=== PATIENT | female | born 1985 | race Caucasian/White ===

== ENCOUNTER 2021-03-01 15:19 | Emergency (ER) | payer BC, SELFPAY ==
[2021-03-01 15:19] VITALS: BP 110/82; PULSE 115; RESP 18; TEMP 36.1; O2SAT 100; BMI 25.5
--- NOTE | 2021-03-01 15:45 | EKG12_ITS ---
Test Reason : CP Blood Pressure : / mmHG Vent. Rate : 094 BPM Atrial Rate : 094 BPM P-R Int : 128 ms QRS Dur : 072 ms QT Int : 362 ms P-R-T Axes : 040 063 034 degrees QTc Int : 452 ms Normal sinus rhythm with sinus arrhythmia Normal ECG Confirmed by MARCELLA RODRIGUEZ, RUTHIE ([id number]), script editor MANDY KEENE ([id number]) on 03/04/2021 9:55:23 AM Referred By: FLOR Confirmed By:RUTHIE NARANJO MD
--- NOTE | 2021-03-01 16:20 | EDS_ITS ---
HPI History of Present Illness Chief Complaint: General Illness Informant: patient Onset/Context/Timing Onset: Today Narrative Narrative: Patient reports after taking her daughter to school this morning she developed lightheadedness and dizziness. She did have an episode of vomiting. She has chest heaviness and mild loose stool. No fever has been noted. [facility] Medical History no medical history no medical history Home Medications norethindrone ac-eth estradiol [June (21)] 1 tab PO DAILY 03/01/21 [History Last Taken Unknown] Allergy/AdvReac Type Severity Reaction Status Date / Time adhesive Allergy Rash Verified 03/01/21 15:21 latex Allergy Rash Verified 03/01/21 15:21 morphine Allergy Other Verified 03/01/21 15:21 Penicillins Allergy Anaphylaxis Verified 03/01/21 15:21 Social History Smoking Status: Never smoker ROS ROS ED Constitutional Constitutional ED: Denies chills or fever(s) Eyes Eyes: Denies change in vision ENT ENT ED: Denies sore throat Cardiovascular Cardiovascular: Reports chest pain Respiratory/Chest Respiratory/Chest: Reports dyspnea; Denies cough Gastrointestinal Gastrointestinal: Reports nausea and vomiting; Denies abdominal pain or diarrhea Genitourinary Genitourinary ED: Denies dysuria Musculoskeletal Musculoskeletal: Reports myalgias; Denies back pain Integumentary Denies rash Neurologic Neurologic: Reports other Details: Lightheadedness ; Denies headache(s) or weakness Allergic/Immunologic Allergic/Immunologic ED: Denies urticaria EXAM Physical Exam Const Vital Signs: 03/01/21 15:19 03/01/21 16:58 03/01/21 17:00 Temperature 97 F L Temperature Source Temporal Pulse Rate 115 H 72 Respiratory Rate 18 17 Respiratory Effort Normal Non-Labored Respiratory Pattern Normal Blood Pressure 110/82 H 121/78 H Blood Pressure Mean 91 92 Pulse Ox 100 Oxygen Delivery Method Room Air Positive well nourished and well developed General Appearance ED: well developed HEENT Reports moist mucous membranes Eyes PERRL and EOMs intact bilaterally Neck supple Chest Wall inspection of chest normal and palpation of chest normal Resp normal respiratory effort and clear to auscultation bilaterally Cardio regular rate and regular rhythm GI non-tender Auscultation: hypoactive bowel sounds Palpation: soft Extremity normal to inspection Neuro oriented x3 and no sensory deficits noted Sensorium / Orientation: alert Motor Exam: strength 5/5 throughout Skin no rashes or lesions noted MDM MDM MDM Narrative Medical decision making narrative: Lab work, chest x-ray, EKG ordered. Patient given 500 cc IV fluid bolus along with a dose of Zofran. Lab Data Attestation: I reviewed the patient's lab results. Labs: Laboratory Results - last 24 hr 03/01/21 03/01/21 03/01/21 16:35 16:35 16:35 WBC 9.0 RBC 4.70 Hgb 14.0 Hct 43.4 MCV 92.3 MCH 29.8 MCHC 32.3 RDW Std Deviation 43.8 RDW Coeff of Jose Alfredo 13.0 Plt Count 421 MPV 9.7 Immature Gran % (Auto) 0.700 Neut % (Auto) 69.2 Lymph % (Auto) 23.6 [place] % (Auto) 5.4 Eos % (Auto) 0.8 Baso % (Auto) 0.3 Absolute Neuts (auto) 6.2 Absolute Lymphs (auto) 2.11 Nucleated RBC % 0 D-Dimer Quant (PE/DVT) 0.87 H* Sodium 138 Potassium 3.9 Chloride 104 Carbon Dioxide 24.0 Anion Gap 10 BUN 13 Creatinine 0.96 Estim Creat Clear Calc 81.72 Est GFR (MDRD) Af Amer 84 Est GFR (MDRD) Non-Af 69 BUN/Creatinine Ratio 13.5 Glucose 95 Calcium 9.4 Troponin I High Sens 3 Serum , Qual 03/01/21 16:35 WBC RBC Hgb Hct MCV MCH MCHC RDW Std Deviation RDW Coeff of Jose Alfredo Plt Count MPV Immature Gran % (Auto) Neut % (Auto) Lymph % (Auto) [place] % (Auto) Eos % (Auto) Baso % (Auto) Absolute Neuts (auto) Absolute Lymphs (auto) Nucleated RBC % D-Dimer Quant (PE/DVT) Sodium Potassium Chloride Carbon Dioxide Anion Gap BUN Creatinine Estim Creat Clear Calc Est GFR (MDRD) Af Amer Est GFR (MDRD) Non-Af BUN/Creatinine Ratio Glucose Calcium Troponin I High Sens Serum , Qual NEGATIVE Radiography Chest X-Ray - ED: 1 View, Read by ED Physician, Normal, Heart, Lungs and Mediastinum Diagnostic Testing: Clinical Impression(s) from Imaging Studies Chest X-Ray 03/01/21 16:35 IMPRESSION: Normal x-ray examination of the chest. Electronically Signed: Good Martinez MD at 16:47 EST Tel , Service support , Chest CTA 03/01/21 17:38 IMPRESSION: No demonstrated pulmonary embolism or arterial dissection. Electronically Signed: Edouard Fenton MD at 18:17 EST , Service support , EKG Initial EKG: Attestation: I personally reviewed and interpreted this EKG as follows: Interpretation: Sinus Rhythm (Sinus at 94 with no acute ischemia.) Treatment and Re-Evaluation Comments:: Patient's lab work reviewed and largely unremarkable. D-dimer is elevated. Chest x-ray reveals no infiltrate. CTA obtained and unremarkable. On repeat evaluation patient is walking back to the bathroom. She does report some slight improvement in her symptoms. She is reassured with our findings here. I will send a urinalysis to ensure no sign of infection. If this is positive or she requires any treatment I will call her. Return instructions provided. Discharge Plan Triage Chief Complaint: General Illness ED Provider: Tatianna Kim Dx/Rx/DC Orders Clinical Impression: Dizziness Instructions: ED Dizziness, Uncertain Cause Prescriptions: No Action norethindrone ac-eth estradiol [ (21)] 1.5-30 mg-mcg tablet 1 tab PO DAILY RF: 0 Primary Care Provider: Care Physician,No Primary Referrals: Ana Patel MD [STAFF PHYSICIAN] - 1-2 Weeks Care Physician,No Primary [Primary Care Provider] - Disposition Disposition: Home, Self Care
--- NOTE | 2021-03-01 16:35 | RAD_ITS ---
STUDY: X-RAY CHEST REASON FOR EXAM: Female, 35 years old. cp TECHNIQUE: Single AP portable view of the chest. COMPARISON: None. FINDINGS: The lungs are clear and expanded. There is no demonstrated pleural abnormality. Normal size heart. Normal mediastinum and telly. Normal visualized pulmonary arteries. Normal visualized aortic arch and descending thoracic aorta. Normal visualized thoracic spine. Normal visualized ribs, clavicles, and shoulders. There is no demonstrated abnormality of the visualized soft tissue structures of the upper abdomen. RAD/Chest 1 View (Portable) IMPRESSION: Normal x-ray examination of the chest. Electronically Signed: Good Martinez MD at 16:47 EST Tel , Service support ,
[2021-03-01] MEDS: Ondansetron 4 MG/2 ML Vial IV (16:43)
[2021-03-01 16:58] VITALS: BP 121/78; PULSE 72; RESP 17
[2021-03-01 16:59] LABS: Internal QC Validated? YES +Cl - CLEAR BKGD; Pregnancy, Serum, hCG Quali. NEGATIVE Negative
[2021-03-01 17:01] LABS: Absolute Lymphocyte Count 2.11 X10^3/uL (0.83-4.51); Absolute Neutrophil Count 6.2 X10^3/uL (2.0-7.7); Basophil# 0.03 X10^3/uL; Basophil% 0.3 % (0-1); Eosinophil# 0.07 X10^3/uL; Eosinophils% 0.8 % (0-5); Hematocrit 43.4 % (37-47); Lymphocyte # 2.11 X10^3/ul (0.83-4.51); Lymphocyte % 23.6 % (19-41); Mean Corp Hgb Conc 32.3 g/dL (32-36); Mean Corpuscular Hgb 29.8 pg (27.0-32.0); Mean Corpuscular Volume 92.3 fL (81-99); Mean Platelet Vol. 9.7 fl (6.2-12.0); Monocyte# 0.48 X10^3/uL; Monocyte% 5.4 % (0-10); NRBC Flagged by Analyzer 0 % (0-5); Neutrophil % 69.2 % (47-70); Platelet Count 421 K/mm3 (150-450); RBC Distribution Width SD 43.8 fl (35.1-43.9)
[2021-03-01 17:06] LABS: Anion Gap 10 (5-15); BUN 13 mg/dL (7-18); BUN/Creat Ratio 13.5 RATIO (10-20); Calcium,Total 9.4 mg/dL (8.5-10.1); Chloride 104 mmol/L (98-107); Creatinine, Serum 0.96 mg/dL (0.55-1.02); EST Glomerular Filtration Rate 69 mL/min (>60); Est Glom Filt Rate - Afr Amer 84 mL/min (>60); Estimated Creatinine Clearance 81.72 ml/min; Glucose 95 mg/dL (74-106); Potassium 3.9 mmol/L (3.5-5.1); Sodium Level 138 mmol/L (136-145); Troponin-I HS 3 pg/mL (3.0-54.0)
[2021-03-01 17:22] LABS: D-Dimer Quantitative (DVT/PE) 0.87 FEU/ug/m (0.27-0.49)
--- NOTE | 2021-03-01 17:38 | CT_ITS ---
EXAM: CT ANGIOGRAPHY CHEST WITHOUT AND WITH INTRAVENOUS CONTRAST CLINICAL INDICATION: CP, elevated d-dimer TECHNIQUE: Helically acquired angiography images were obtained of the chest without and with intravenous contrast. This CT exam was performed using one or more of the following dose reduction techniques: automated exposure control, adjustment of the mA and/or kV according to patient size, and/or use of iterative reconstruction technique. This report was created using [employer] report generation technology. MIP reconstructed images were created and reviewed. CONTRAST: IV 100mL Isovue-370 COMPARISON: None. FINDINGS: PULMONARY ARTERIES: No demonstrated pulmonary embolism or arterial dissection. AORTA: Unremarkable. Normal in caliber. No evidence of dissection. GREAT VESSELS OF AORTIC ARCH: Unremarkable. Normal in caliber. No evidence of dissection. LUNGS AND PLEURAL SPACES: Unremarkable. No mass. No consolidation or edema. No pleural effusion or thickening. No pneumothorax. HEART: Unremarkable. Heart size is normal. No pericardial effusion. No signs of right heart strain, ratio of right ventricle to left ventricle measures less than 1. MEDIASTINUM: Unremarkable. No mediastinal or hilar adenopathy. Esophagus is unremarkable. No hiatal hernia. THYROID: Unremarkable. No thyroid lesions. BONES/JOINTS: Unremarkable. No suspicious lytic or blastic abnormality. CT/CTA Chest W/WO Contrast IMPRESSION: No demonstrated pulmonary embolism or arterial dissection. Electronically Signed: Edouard Fenton MD at 18:17 EST , Service support ,
[2021-03-01 19:20] VITALS: BP 138/74; PULSE 62; RESP 17; O2SAT 97
[2021-03-01 19:42] LABS: Bacteria 0 SEEN /hpf (None Seen); Mucous, Urine 0 SEEN /hpf (<or=2+); Red Blood Cells-Urine 0 SEEN /hpf (0-5); White Blood Cells 0 SEEN /hpf (0-5)
[2021-03-01 19:44] LABS: Color, Urine Yellow (Yellow); Glucose, Dipstick Normal (Normal); Ketone-Dipstick Negative (Negative); Leukocyte Esterase-Dipstick 100 /ul (Negative); Nitrite-Dipstick Negative (Negative); Occult Blood-Urine 25 /ul (Negative); Protein-Dipstick Negative (Negative); Urine Bilirubin Dipstick Negative (Negative); Urine Clarity Clear (Clear); Urine Urobilinogen Normal (Normal); Urine pH 6.5 (5.0 - 8.0)
[2021-03-01 20:06] LABS: Squamous Epithelial Cells - UA 0-5 SEEN /hpf (5-10)
== END 2021-03-01 19:20 | disposition home or self-care (01) ==
PROVIDERS: Emergency Provider Emergency Medicine; Visit Provider Emergency Medicine
DX: R42 Dizziness and giddiness (principal); R07.89 Other chest pain; R11.10 Vomiting, unspecified
CPT/HCPCS: 71045; 71275; 80048; 81001; 84484; 84703; 85025; 85379; 87426; 93005; 96361; 96374; 99284; J7040; Q9967; J2405

== ENCOUNTER 2023-09-11 06:05 | Emergency (ER) | payer BC, SELFPAY ==
[2023-09-11 06:06] VITALS: BP 111/76; PULSE 104; RESP 18; TEMP 36.6; O2SAT 100
--- NOTE | 2023-09-11 06:19 | EKG12_ITS ---
Test Reason : BACK PAIN Blood Pressure : / mmHG Vent. Rate : 090 BPM Atrial Rate : 090 BPM P-R Int : 158 ms QRS Dur : 078 ms QT Int : 370 ms P-R-T Axes : 026 060 051 degrees QTc Int : 452 ms Normal sinus rhythm Normal ECG Confirmed by MARILEE RODRIGUEZ, JERRY ([id number]), photo editor KALIA CAMPBELL ([id number]) on 09/13/2023 10:30:54 A M Referred By: Confirmed By:LUZ HUNT MD
--- NOTE | 2023-09-11 06:32 | EX.ED.DYSGE1 ---
HPI History of Present Illness Chief Complaint: Back Informant: patient and spouse/S.O. Narrative Narrative: Patient is a 38-year-old female with no significant past medical history. She states for the past 2 weeks she has had a persistent cough which has not improved with steroids, cough pill or round of antibiotics. She states she also had an x-ray during this time that did not reveal any obvious pneumonia. Patient denies any recent trauma or excessive activity and states she went to bed feeling relatively normal. She states she woke at 5 in the morning secondary to pain in the left upper back. She states that the pain is worse with motion. She denies any recent travel surgery or history of DVT/PE. However secondary to the pain and the fact that she does not have any obvious reason for why it should hurt she presents for evaluation [facility] Home Medications ?Medication ?Instructions ?Recorded ?Last Taken ?Type ferrous sulfate 325 mg (65 mg 325 mg PO DAILY 09/11/23 Unknown History iron) tablet (Feosol) methocarbamol 500 mg tablet 1,000 mg (2 x 500 mg) PO 4X/DAY 09/11/23 Unknown Rx PRN Muscle pain/spasm #56 tabs multivitamin (Daily Multi-Vitamin 1 tab PO DAILY 09/11/23 Unknown History tablet) Allergy/AdvReac Type Severity Reaction Status Date / Time adhesive Allergy Rash Verified 09/11/23 06:12 latex Allergy Rash Verified 09/11/23 06:12 morphine Allergy Other Verified 09/11/23 06:12 Penicillins Allergy Anaphylaxis Verified 09/11/23 06:12 Social History Smoking Status: Never smoker [facility] ED Constitutional Constitutional ED: Denies chills or fever(s) Eyes Eyes: Denies blurry vision or change in vision ENT ENT ED: Denies rhinorrhea or sore throat Cardiovascular Cardiovascular: Denies chest pain, palpitations or racing heartbeat Respiratory/Chest Respiratory/Chest: Reports cough; Denies dyspnea Gastrointestinal Gastrointestinal: Denies abdominal pain, diarrhea, nausea or vomiting Genitourinary Genitourinary ED: Denies dysuria Musculoskeletal Musculoskeletal: Reports back pain Integumentary Denies rash Neurologic Neurologic: Denies headache(s) Hematologic/Lymphatic Hematologic/Lymphatic: Denies easy bleeding or easy bruising EXAM Physical Exam Const Vital Signs: 09/11/23 06:06 Temperature 97.8 F Temperature Source Oral Pulse Rate 104 H Respiratory Rate 18 Blood Pressure 111/76 Blood Pressure Mean 87 Pulse Ox 100 Oxygen Delivery Method Room Air Positive well nourished and well developed General Appearance ED: well developed; Negative for pallor HEENT HEENT Narrative: No tongue or lip swelling no oral lesions no airway edema or compromise Eyes PERRL and EOMs intact bilaterally General Eye ED: Negative for pale conjunctiva or scleral icterus Neck supple Neck Narrative: No nuchal rigidity or meningeal signs noted Chest Wall palpation of chest normal Resp normal respiratory effort and clear to auscultation bilaterally Resp Narrative: Breath sounds are slight diminished throughout secondary to pain but overall clear to auscultation without nasal flaring retractions tachypnea or accessory muscle use Cardio regular rate and regular rhythm Rate: other Other Details: Heart is regular rate and rhythm without murmurs rubs or gallops Radial and carotid pulses are equal and symmetric GI normal to inspection, nondistended, normoactive bowel sounds, non-tender, non-distended and no masses GI Narrative: No voluntary guarding or rigidity or pulsatile mass Auscultation: normoactive bowel sounds Palpation: soft Back/Spine Back/Spine Narrative: No bony deformity or step-off of the thoracic or lumbar spine no midline tenderness to palpation. There is reproducible left upper thoracic pain with palpation near the shoulder blade. This pain worsens with motion as well No overlying soft tissue changes to suggest trauma or infection Extremity normal to inspection Extremity Narrative: No asymmetric edema no pitting edema negative Homans' sign bilaterally Neuro oriented x3, CN's II-XII intact bilaterally and no sensory deficits noted Sensorium / Orientation: alert Motor Exam: strength 5/5 throughout Psych mental status grossly normal Skin no rashes or lesions noted and no wounds General Skin Exam: Negative for jaundice or pallor MDM MDM MDM Narrative Medical decision making narrative: Patient presented to the ER with stable vitals and reported left upper back pain that is worse with motion and deep inspiration. She has had a persistent cough for the past few weeks and denied any recent trauma or excessive activity. The fact that the pain is reproducible with palpation and worse with motion indicates this is most likely musculoskeletal secondary to her persistent cough. However as there is concern this could be acute coronary syndrome versus pneumothorax versus pneumonia versus pulmonary embolus versus dissection I did elect to perform basic laboratory studies as well as EKG and chest x-ray. Chest x-ray revealed no lung pathology such as widening the mediastinum to suggest dissection nor did show pneumonia or pneumothorax. EKG was normal sinus rhythm without ischemic changes and troponin was normal as well going against acute coronary syndrome. Patient's D-dimer slightly elevated at 0.72 and even though she is low risk for DVT/PE or dissection a CTA will be obtained secondary to her left upper back pain and elevated D-dimer. As this result will be pending patient will be signed out to the day physician Dr. Solis. I do feel that symptoms are most likely musculoskeletal in nature and as long as CTA does not reveal any type of acute vascular lung pathology patient should be safe for discharge home. History & Record Review Discussion w/independent historian: Patient and Significant other Lab Data Attestation: I reviewed the patient's lab results. Labs: Laboratory Results - last 24 hr 09/11/23 06:33 WBC 7.4 RBC 4.23 Hgb 11.1 L Hct 37.1 MCV 87.7 MCH 26.2 L MCHC 29.9 L RDW Std Deviation 49.8 H RDW Coeff of Jose Alfredo 15.6 H Plt Count 388 MPV 9.8 Immature Gran % (Auto) 0.400 Neut % (Auto) 55.8 Lymph % (Auto) 31.9 [place] % (Auto) 7.6 Eos % (Auto) 3.8 Baso % (Auto) 0.5 Absolute Neuts (auto) 4.1 Absolute Lymphs (auto) 2.36 Nucleated RBC % 0 D-Dimer Quant (PE/DVT) 0.72 H* Radiography Diagnostic Testin view chest x-ray as interpreted by the emergency medicine physician reveals no acute infiltrate pneumothorax pleural effusion or widening the mediastinum Discharge Plan Triage Chief Complaint: Back ED Provider: Ilir Arizmendi Dx/Rx/DC Orders Clinical Impression: Acute thoracic myofascial strain, Cough Instructions: ED Back Spasm, No Trauma, ED Back Sprain/Strain Prescriptions: New methocarbamol 500 mg tablet 1,000 mg PO 4X/DAY PRN (Reason: Muscle pain/spasm) Qty: 56 0RF No Action multivitamin [Daily Multi-Vitamin] Tablet 1 tab PO DAILY ferrous sulfate [Feosol] 325 mg (65 mg iron) tablet 325 mg PO DAILY Primary Care Provider: Jarocho Brown Referrals: Jarocho Brown MD [[facility]] - Print Language: Syrian
[2023-09-11] MEDS: Orphenadrine 60 MG/2 ML Ampul IV (06:34)
[2023-09-11] MEDS: Ketorolac 30 MG/ML Syringe IV (06:34)
--- NOTE | 2023-09-11 06:40 | RAD_ITS ---
EXAM: XR CHEST, 2 VIEWS CLINICAL INDICATION: COUGH TECHNIQUE: Frontal and lateral views of the chest. COMPARISON: Previous chest radiograph of 03/01/2021. CTA chest of this date. FINDINGS: LUNGS AND PLEURAL SPACES: Unremarkable. No consolidation or edema. No pneumothorax. No effusion. No peribronchial cuffing. The lungs are not hyperinflated. HEART: Unremarkable. Cardiac silhouette not enlarged. Normal pulmonary vasculature. MEDIASTINUM: Central airways and mediastinal contour are unremarkable. BONES/JOINTS: Unremarkable. No acute fracture. SOFT TISSUES: Unremarkable. RAD/Chest PA and Lateral IMPRESSION: No significant interval change. No radiographic evidence of acute cardiopulmonary disease. Electronically Signed: Thomas Luke MD at 7:54 EDT ,
[2023-09-11 06:42] LABS: Absolute Lymphocyte Count 2.36 X10^3/uL (0.83-4.51); Absolute Neutrophil Count 4.1 X10^3/uL (2.0-7.7); Basophil# 0.04 X10^3/uL; Basophil% 0.5 % (0-1); Eosinophil# 0.28 X10^3/uL; Eosinophils% 3.8 % (0-5); Hematocrit 37.1 % (37-47); Hemoglobin 11.1 g/dL (12.0-15.0); Lymphocyte # 2.36 X10^3/ul (0.83-4.51); Lymphocyte % 31.9 % (19-41); Mean Corp Hgb Conc 29.9 g/dL (32-36); Mean Corpuscular Hgb 26.2 pg (27.0-32.0); Mean Corpuscular Volume 87.7 fL (81-99); Mean Platelet Vol. 9.8 fl (6.2-12.0); Monocyte# 0.56 X10^3/uL; Monocyte% 7.6 % (0-10); NRBC Flagged by Analyzer 0 % (0-5); Neutrophil # 4.13 X10^3/uL (2.7-7.7); Neutrophil % 55.8 % (47-70); Platelet Count 388 K/mm3 (150-450); RBC Distribution Width CV 15.6 % (11.6-14.6); RBC Distribution Width SD 49.8 fl (35.1-43.9); Red Blood Count 4.23 M/mm3 (4.2-5.4); White Blood Count 7.4 K/mm3 (4.4-11.0)
[2023-09-11 07:07] LABS: D-Dimer Quantitative (DVT/PE) 0.72 FEU/ug/m (0.27-0.49)
--- NOTE | 2023-09-11 07:07 | CT_ITS ---
EXAM: CT ANGIOGRAPHY CHEST WITHOUT AND WITH INTRAVENOUS CONTRAST CLINICAL INDICATION: elevated d-dimer TECHNIQUE: Helically acquired angiography images were obtained of the chest without and with intravenous contrast. This CT exam was performed using one or more of the following dose reduction techniques: automated exposure control, adjustment of the mA and/or kV according to patient size, and/or use of iterative reconstruction technique. MIP reconstructed images were created and reviewed. CONTRAST: IV 100mL Isovue-370 RADIATION DOSE: Total DLP: 337.93 mGy-cm. COMPARISON: CTA chest of 03/01/2021. Chest radiographs of this same date. FINDINGS: PULMONARY ARTERIES: Unremarkable. Normal in caliber. No evidence of pulmonary embolism. AORTA: Unremarkable. Normal in caliber. No evidence of dissection. GREAT VESSELS OF AORTIC ARCH: Unremarkable. Normal in caliber. No evidence of dissection. LUNGS AND PLEURAL SPACES: Trace of pleural fluid on the left. No acute pulmonary infiltrates. No mass. No pneumothorax. HEART: There is minimal pericardial effusion, unchanged. MEDIASTINUM: Unremarkable. No mediastinal or hilar adenopathy. Esophagus is unremarkable. No hiatal hernia. THYROID: Unremarkable. No thyroid lesions. BONES/JOINTS: Unremarkable. No suspicious lytic or blastic abnormality. GALLBLADDER AND BILE DUCTS: Upper normal size gallbladder. No calcified gallstones, wall thickening or pericholecystic stranding. INTRAPERITONEAL SPACE: Visualized portions of liver and pancreas are unremarkable. Lobulated spleen. Adrenal glands are unremarkable. No pneumoperitoneum is noted. CT/CTA Chest W/WO Contrast IMPRESSION: Negative for PE. No thoracic aortic dissection or acute pulmonary infiltrates. Electronically Signed: Thomas Luke MD at 7:53 EDT ,
[2023-09-11] MEDS: 0.9% Normal Saline (1000mL) 1,000 ML 999 ML IV (07:13)
[2023-09-11 07:21] LABS: Anion Gap 5 (5-15); BUN 13 mg/dL (7-18); BUN/Creat Ratio 15.5 RATIO (10-20); Calcium,Total 8.8 mg/dL (8.5-10.1); Chloride 107 mmol/L (98-107); Creatinine, Serum 0.84 mg/dL (0.55-1.02); EST Glomerular Filtration Rate 80 mL/min (>60); Est Glom Filt Rate - Afr Amer 97 mL/min (>60); Estimated Creatinine Clearance 101.92 ml/min; Glucose 104 mg/dL (74-106); Magnesium 2.3 mg/dL (1.6-2.6); Potassium 4.2 mmol/L (3.5-5.1); Sodium Level 137 mmol/L (136-145); Troponin-I HS < 3 pg/mL (3.0-54.0)
[2023-09-11 08:06] VITALS: BP 119/75; PULSE 75; RESP 16; TEMP 36.5; O2SAT 100
[2023-09-11 08:13] VITALS: BP 119/75; PULSE 77; RESP 16; TEMP 36.5; O2SAT 100
== END 2023-09-11 08:20 | disposition home or self-care (01) ==
LOC: ED 06:44
PROVIDERS: Emergency Provider Emergency Medicine; PCP Internal Medicine; Visit Provider Emergency Medicine
DX: S29.012A Strain of muscle and tendon of back wall of thorax, initial encounter (principal); X58.XXXA Exposure to other specified factors, initial encounter; R05.3 Chronic cough
CPT/HCPCS: 71046; 71275; 80048; 83735; 84484; 85025; 85379; 93005; 96361; 96374; 96375; 99282; J7030; Q9967; A4216